=== PATIENT | male | born 1950 | race Two or more races ===

== ENCOUNTER 2024-06-10 02:19 | Emergency (ER) | payer MEDICARE, MEDICAID, SELFPAY ==
[2024-06-10 02:20] VITALS: BMI 25.2
--- NOTE | 2024-06-10 02:21 | EKG_ITS ---
[facility] Test Date: 2024-06-10 Pat Name: JUAN LUIS LIU Department: Room: - Gender: Male Senior Site Manager: : 1950 Requested By: Alfredo Ray Order Number: [id number] Reading MD: Alfredo Ray Measurements Intervals [place] Rate: 102 P: 49 UT: 174 QRS: 67 QRSD: 91 T: 210 QT: 335 QTc: 438 Interpretive Statements SINUS TACHYCARDIA MARKED ST DEPRESSION, CONSIDER SUBENDOCARDIAL INJURY [0.2+ mV ST DEPRESSION] ACUTE DC Compared to ECG 04/29/2023 16:06:25 ST (T wave) deviation now present Sinus bradycardia no longer present Myocardial infarct finding no longer present /store/[id number]
[2024-06-10 02:45] VITALS: BP 105/73; PULSE 96; RESP 17; TEMP 36.4; O2SAT 94
--- NOTE | 2024-06-10 02:59 | PD.EDCHEST ---
ED Chest Pain RME/HPI General Chief Complaint: Chest Pain Stated Complaint: chest pain, sob Time Seen by Provider: 06/10/24 03:03 Arrival date/time: 06/10/24 02:19 RME / HPI RME / HPI narrative: Patient is a Polish-speaking 74-year-old male with past medical history of type 2 diabetes who presented to the ED around 2:20 am 06/10/2024 with intermittent chest pain for 3 weeks, until about 8 pm tonight when the pain became 10/10 at which time he was laying down resting. Patient states this was the first time the pain worsened to this level, pain was unbearable and he did not sleep tonight, so brought himself to the hospital. Pain is located in the right upper chest, no radiation, constant, no known triggers. Patient states he usually takes a pill prescribed by his PCP which relieves the chest pain but has run out of this medication and has since had increasing chest pain. Patient is denying any fevers, chills, nausea, vomiting, diarrhea, cough, or sore throat. Patient states his only other medication is metformin. He denies ever seeing a experiential therapist. MD complaint: chest pain Onset (ago): week(s) (but worse 6 hours prior to arrival) Time: 02:30 Duration: constant Onset: during rest Pain location: substernal Severity: severe Severity scale (1-10): 10 Quality: heaviness Pain radiation: none Relieving factors: nothing Exacerbating factors: nothing Treatments prior to arrival chest pain: none Related Data Previous Rx's ?Medication ?Instructions ?Recorded Hydrocodone/Acetaminophen * (NORCO 1 - 2 tab PO BID PRN PAIN #8 tabs 10/02/14 5/325 *) hydrocodone 5 mg-acetaminophen 325 1 tab PO Q8H PRN pain #12 tabs 02/08/21 mg tablet ibuprofen 800 mg tablet 800 mg PO TID #30 tabs 02/08/21 Allergies Allergy/AdvReac Type Severity Reaction Status Date / Time No Known Allergies Allergy Verified 04/29/23 15:29 Review of Systems Cardiovascular Cardiovascular: Reports as per HPI and Denies dyspnea Respiratory Respiratory: Denies dyspnea Neurologic Neurologic: Reports system reviewed and no additional complaints, except as documented Past Medical History Past Medical History Comments PMH COMMENT: Past Medical History: Type 2 diabetes Family History: No known cardiac history Surgical History: No past surgeries Social History: Denies history of smoking, denies current alcohol use, denies recreational drug use Current Medications: Metformin, unknown pain-relieving medication (Source: Patient) Allergies: No known drug allergies ED Exam Narrative Physical exam: Physical Exam General: Awake and in acute distress. Polish-speaking, conversational, and non-toxic appearing. HEENT: Normocephalic, atraumatic, mucous membranes moist. Heart: Regular rate and rhythm, no murmurs. Lungs: Clear to auscultation with no wheezing or crackles. Abdomen: Soft, nondistended, nontender, positive bowel sounds. ?No guarding or rebound tenderness. Back: No tenderness to palpation. Neurologic: Alert and oriented x3, no gross neurological deficit, and patient able to move all 4 extremities. Extremities: No edema. Skin:Mild diaphoresis Course Course Course Narrative: HEART ALERT called at 03:48. See [facility] for course narrative. Quality Measures VTE therapy Orders Category Date Time Status Bedside COVID-19 Antigen Test NOW Care 06/10/24 02:59 Active Bedside Influenza A&B Antigen Test NOW Care 06/10/24 02:[address] Screening NOW Care 06/10/24 03:26 Active EKG (ED ONLY) *Do not use* NOW Care 06/10/24 02:21 Completed EKG (ED ONLY) *Do not use* NOW Care 06/10/24 03:37 Completed Notify provider NOW Care 06/10/24 03:47 Active Consult to Cardiology Stat Cons 06/10/24 03:[address] angio chest Stat Exams 06/10/24 03:26 Ordered CXRP [XR chest 1V portable] Stat Exams 06/10/24 03:01 Taken EKG (ED Only) Stat Exams 06/10/24 02:21 Ordered EKG (ED Only) Stat Exams 06/10/24 03:37 Ordered Blood Culture (Lab) Stat Lab 06/10/24 03:37 Received CBC Stat Lab 06/10/24 03:13 Completed CMP [Comprehensive Metabolic Panel] Stat Lab 06/10/24 03:13 Completed Lactate (Lactic Acid) Stat Lab 06/10/24 03:13 Results Mag [Magnesium] Stat Lab 06/10/24 03:13 Completed Partial Thromboplastin Time Stat Lab 06/10/24 03:13 Completed Phosphorous Stat Lab 06/10/24 03:13 Completed Prothrombin Time with INR Stat Lab 06/10/24 03:13 Completed Troponin I Stat Lab 06/10/24 03:13 Completed Type and Screen Stat Lab 06/10/24 03:13 Completed Aspirin Med 06/10/24 03:11 Discontinued 325 mg PO X1 ONE Clopidogrel [Plavix] Med 06/10/24 03:11 Discontinued 300 mg PO X1 ONE Heparin Inj Med 06/10/24 03:47 Discontinued 2,450 unit IV X1 ONE Heparin Inj Med 06/10/24 03:47 Discontinued 4,900 unit IV X1 ONE Heparin/D5w 25K 250 ML Ivpb [Heparin in D5w Ivpb] Med 06/10/24 04:00 Active 25,000 unit in 250 ml IV 12 units/kg/hr Nitroglycerin [Nitrostat 1/150] Med 06/10/24 03:01 Discontinued 0.4 mg SL Q5MIN PRN Sodium Chloride 0.9% 1000 ml [Ns] 1,000 ml Med 06/10/24 03:12 Discontinued IV 999 mls/hr Reevaluation(s) Reevaluation #1: See Summary Vital Signs Vital signs: Vital Signs Temperature 97.6 F 06/10/24 02:45 Pulse Rate 96 06/10/24 02:45 Respiratory Rate 17 06/10/24 02:45 Blood Pressure 105/73 06/10/24 02:45 Pulse Oximetry (%) 94 L 06/10/24 02:45 Oxygen Delivery Method Room Air 06/10/24 02:45 Chest Pain MDM Narrative MDM Narrative:: I, Dr. Rick MD, is present for the entire history, physical exam, and discussion, treatment plan, multiple reevaluations, reviewed the patient note and agree. Patient data External records reviewed:: [facility] previous records Clinical information provided by:: patient Social determinants that could affect healthcare access:: none Patient has the following chronic illnesses:: Type 2 diabetes How is presenting disease/condition affected by chronic disease/condition?: exacerbated by Evaluation data The following diagnostics were reviewed and interpreted by me:: lab results, radiology exam(s) and EKG tracing(s) Lab and/or radiology exams considered but not ordered:: CTA chest for consideration of PE, aortic dissection Interpretation Summary: EKG #1 completed at 2:34 am: Sinus tachycardia with a rate of 100. Diffuse ST depressions throughout all leads, especially I, II, V1, V2, V3, V4, V5, and V6. Patient was given a loading dose of aspirin 325 mg and clopidogrel 300 mg. Labs sent for CBC, CMP, Mag, Phos, troponin, lactate. EKG #2 completed at 3:45 am: Sinus tachycardia with a rate of 100. Marked ST depression in leads I, II and elevation in aVR 03:48: HEART ALERT called EKG #3 completed at 3:49 am: Sinus tachycardia with a rate of 105. Marked ST depression in leads I, II and elevation in aVR 04:10: RN called , no response. Rayo (son) contacted, 04:11: [facility] contacted and states they did not receive EKG fax images. Images refaxed. 04:13: Dr. Villatoro contacted to help with transfer to [facility]. 04:15: Spoke with [facility] Dr. White who accepts the patient for transfer. Medications / Prescriptions Medications or Prescriptions considered but not ordered:: None Medication administrations:: Medication Administration History Heparin Sodium/Dextrose (Heparin In D5w Ivpb) 25,000 unit in 250 mls @ 8.513 mls/hr IV .Q24H MAGDA; Protocol Stop: 06/24/24 03:59 Last Admin: 06/10/24 04:10 Dose: 12 units/kg/hr, 8.513 mls/hr Documented By: AC Co-signed By: TC Discontinued Medications Aspirin (Aspirin 325 Mg Tablet) 325 mg PO X1 ONE Stop: 06/10/24 03:12 Last Admin: 06/10/24 03:20 Dose: 325 mg Documented By: EF Clopidogrel Bisulfate (Clopidogrel Bisulfate 75 Mg Tablet) 300 mg PO X1 ONE Stop: 06/10/24 03:12 Last Admin: 06/10/24 03:20 Dose: 300 mg Documented By: EF Heparin Sodium (Porcine) (Heparin Sod Inj 5000 Unit/Ml Vial) 4,900 unit 60 unit/kg (4900 unit) IV X1 ONE; Protocol Stop: 06/10/24 03:48 Last Admin: 06/10/24 03:57 Dose: 4,900 unit Documented By: AC Co-signed By: TC Heparin Sodium (Porcine) (Heparin Sod Inj 5000 Unit/Ml Vial) 2,450 unit 30 unit/kg (2450 unit) IV X1 ONE; Protocol Stop: 06/10/24 03:48 Last Admin: 06/10/24 04:00 Dose: Not Given Documented By: AC Non-Admin Reason: Contraindicated Sodium Chloride (Ns) 1,000 mls @ 999 mls/hr IV .Q1H1M ONE Stop: 06/10/24 04:12 Last Admin: 06/10/24 03:21 Dose: 999 mls/hr Documented By: EF Nitroglycerin (Nitroglycerin 0.4 Mg Subl Btl #25) 0.4 mg SL Q5MIN PRN PRN Reason: CHEST PAIN . Consultations Consultation(s) initiated? (list below): Yes Consultation #1 (Physician, Specialty, Details): See Summary below Diagnosis Chest Pain Differential Diagnosis: pneumothorax, stable angina, unstable angina pectoris, atypical chest pain, st elevation myocardial infarction and other (NSTEMI) Most likely diagnosis given after review of the tests above:: STEMI versus NSTEMI Admission Indicated Admission indicated?: not indicated (Transfer ED to ED transfer [facility]) Explain why admission is indicated or not indicated:: Transfer ED to ED transfer Admission Request Was there a request for admission?: No Disposition Plan Disposition Plan: Transfer (Dr. White. Transfer ED to ED transfer [facility]) Critical Care Time Critical Care Time Critical Care Time: Yes Total Critical Care Time (min.): 45 Attestation: The high probability of sudden, clinically significant deterioration in the patient?s condition required the highest level of my preparedness to intervene urgently. The services I provided to this patient were to treat and/or prevent clinically significant deterioration. Services included the following: chart data review, reviewing nursing notes and/or old charts, documentation time, fashion consultant sales collaboration regarding findings and treatment options, medication orders and management, direct patient care, vital sign assessments and ordering, interpreting and reviewing diagnostic studies and lab tests. Aggregate critical care time includes only time during which I was engaged in work directly related to the patient?s care, as described above, whether at bedside or elsewhere in the Emergency Department. It did not include time spent performing other reported procedures or the services of residents, students, nurses or physician assistants. Discharge Plan Plan Patient Disposition: [facility] Fac Service Needed for Transfer: Cardiology Disposition Comment: Recruiting Intern Patient condition on transfer: Stable Prescriptions/Referrals Prescriptions/Med Rec: No Action Hydrocodone/Acetaminophen * (NORCO 5/325 *) 1 TAB tablet 1 - 2 tab PO BID PRN (Reason: PAIN) Qty: 8 0RF Rx Instructions: FOR PAIN ibuprofen 800 mg tablet 800 mg PO TID Qty: 30 0RF hydrocodone-acetaminophen 5-325 mg tablet 1 tab PO Q8H MDD 4 PRN (Reason: pain) Qty: 12 0RF Referrals: No Primary/Family,Physician [Referring Provider] - In 1 week Problem List Clinical Impression: ST segment depression, Acute chest pain, Elevated troponin, Acidosis, lactic Patient/Caregiver Discharge Instructions Print Language: Polish Stand Alone Forms: Marylu Award Info., Patient Portal Info Letter
--- NOTE | 2024-06-10 03:01 | XR_ITS ---
Examination: AP chest single view Technique one AP portable upright chest single view Exam date and time: June 10, 2024 0332 hrs. Comparison April 29, 2023 Indications: Onset chest pain today. Findings: Extensive interstitial disease throughout the lungs consistent with pneumonia Associated heart failure although the heart is relatively normal size, with prominent vascular congestion and perihilar edema Impression: Extensive bilateral pneumonia Associated heart failure
[2024-06-10] MEDS: CLOPIDOGREL BISULFATE 75 MG TABLET 300 MG PO (03:20)
[2024-06-10] MEDS: Aspirin 325 MG TABLET PO (03:20)
[2024-06-10] MEDS: SODIUM CHLORIDE 0.9% 1000 ML 1,000 ML 999 ML IV (03:21)
[2024-06-10 03:24] LABS: Lactate (Lactic Acid) 4.4 mMol/L (0.4-2.0)
[2024-06-10 03:29] LABS: Basophils # (Auto) 0.1 Thou/mm3 (0.0-0.2); Basophils % (Auto) 1 % (0-2.5); Eosinophils # (Auto) 0.1 Thou/mm3 (0.0-0.5); Eosinophils % (Auto) 1 % (0-10); Hemoglobin 17.1 g/dL (13.5-16.0); Immature Granulocytes % (Auto) 1 % (0-0); Immature Granulocytes Auto 0.08 Thou/mm3 (0.00-0.00); Lymphocytes # (Auto) 2.9 Thou/mm3 (1.0-4.8); Lymphocytes % (Auto) 21 % (10-50); Mean Corpuscular HGB Conc 33.5 g/dl (31.0-37.0); Mean Corpuscular Hemoglobin 30.3 pg (25.0-35.0); Mean Corpuscular Volume 90 fL (80-100); Monocytes # (Auto) 0.6 Thou/mm3 (0.0-0.8); Monocytes % (Auto) 4 % (0-12); Neutrophils # (Auto) 10.3 Thou/mm3 (1.8-7.7); Neutrophils % (Auto) 73 % (37-80); Nucleated Red Blood Cell % 0 /100 WBC (0); Platelet Count 188 Thou/mm3 (140-440); RDW Standard Deviation 47.6 fL (35.1-43.9); Red Blood Count 5.64 Miln/mm3 (4.50-5.90)
--- NOTE | 2024-06-10 03:37 | EKG_ITS ---
[facility] Test Date: 2024-06-10 Pat Name: JUAN LUIS LIU Department: Room: - Gender: Male Tensile Tester: : 1950 Requested By: Eve Flores Order Number: [id number] Reading MD: Eve Flores Measurements Intervals [place] Rate: 100 P: 52 MT: 148 QRS: 71 QRSD: 89 T: 209 QT: 333 QTc: 429 Interpretive Statements SINUS TACHYCARDIA WITH OCCASIONAL ECTOPIC PREMATURE COMPLEXES MARKED ST DEPRESSION, CONSIDER SUBENDOCARDIAL INJURY [0.2+ mV ST DEPRESSION] ACUTE MD Compared to ECG 04/29/2023 16:06:25 ST (T wave) deviation now present Sinus bradycardia no longer present Myocardial infarct finding no longer present /store/S0/[id number]
[2024-06-10 03:46] LABS: Alanine Aminotransferase 26 U/L (10-49); Albumin, Serum 4.6 gm/dL (3.4-4.8); Alkaline Phosphatase 80 U/L (46-116); Anion Gap 14 (7-16); Aspartate Amino Transferase 51 U/L (0-34); BUN/Creatinine Ratio 11 Ratio (12-20); Blood Urea Nitrogen 13 mg/dL (9-23); Calcium 9.6 mg/dL (8.3-10.6); Calcium (Corrected) 9.6 mg/dL (8.5-10.1); Carbon Dioxide 23.5 mMol/L (20.0-31.0); Chloride 101 mMol/L (98-107); Creatinine (Component) 1.2 mg/dL (0.6-1.3); Estimated Creatinine Clearance 53.4 mL/min (>60); Glucose 240 mg/dL (74-106); Magnesium 2.1 mg/dL (1.6-2.6); Osmolality,Calculated 283 (275-295); Phosphorous 4.2 mg/dL (2.4-5.1); Potassium 3.9 mMol/L (3.4-5.1); Sodium 138 mMol/L (136-145); eGFR > 60 See Note
[2024-06-10 03:47] LABS: Albumin/Globulin Ratio 1.4 (1.2-2.2); Bilirubin,Total 0.8 mg/dL (0.3-1.2); Globulin 3.3 gm/dL (2.3-3.5); Total Protein 7.9 gm/dL (5.7-8.2)
[2024-06-10 03:49] LABS: INR 1.1 (0.9-1.3); Partial Thromboplastin Time 26.5 Seconds (22.0-36.0); Prothrombin Time 11.5 Seconds (9.0-12.2); Troponin I 1.197 ng/mL (0.0-0.045)
[2024-06-10 03:54] VITALS: BP 88/70; PULSE 96; RESP 22; O2SAT 91
[2024-06-10] MEDS: HEPARIN SOD INJ 5000 UNIT/ML VIAL 4900 UNIT IV (03:57)
[2024-06-10 04:06] VITALS: BP 80/68; PULSE 100; RESP 27; TEMP 36.4; O2SAT 8
[2024-06-10] MEDS: Heparin/D5w 25K 250 ML Ivpb 25,000 UNIT/250 ML BAG 8.513 UNIT IV (04:10)
--- NOTE | 2024-06-10 04:13 | PC.NURSE ---
attempted to call patients son and no one answered
--- NOTE | 2024-06-10 04:16 | PC.NURSE ---
DR. MCCARTHY IS ON THE PHONE WITH TRANSFER CENTER AT THIS TIME.
[2024-06-10 04:20] VITALS: BP 92/67; PULSE 101; RESP 24; O2SAT 96
--- NOTE | 2024-06-10 04:22 | PC.NURSE ---
PT IS ACCEPTED TO [facility] BY DR. DECKER. THIS IS A ER TO ER TRANSFER AND NUMBER FOR REPORT IS [phone]. SORAYA WAS THE REP I SPOKE WITH FOR ACCEPTING INFORMATION.
[2024-06-10 04:30] VITALS: BP 87/66; PULSE 105; RESP 22; O2SAT 93
[2024-06-10 04:40] VITALS: BP 90/61; PULSE 109; RESP 21; O2SAT 92
[2024-06-10 06:18] LABS: Reflex Lactate? Y
== END 2024-06-10 04:50 | disposition short-term general hospital (02) ==
PROVIDERS: Student in an Organized Health Care Education/Training Program; Emergency Provider Emergency Medicine; PCP Family Medicine
DX: R07.9 Chest pain, unspecified (principal); E87.20 Acidosis, unspecified; R79.89 Other specified abnormal findings of blood chemistry; E11.9 Type 2 diabetes mellitus without complications
CPT/HCPCS: 36415; 71045; 80053; 83605; 83735; 84100; 84484; 85025; 85610; 85730; 86850; 86900; 86901; 87040; 87400; 87811; 93005; 99291; J1643; J1644; J7030; A9270